=== PATIENT | male | born 1975 | race Caucasian/White ===

== ENCOUNTER 2017-06-12 06:41 | Emergency (ER) | payer OTHER ==
[~2017-06-12] VITALS: Ht 172.7 cm; Wt 102.1 kg
[~2017-06-12 06:41] MED LIST: NAPROSYN500 MG PO; NORCO 5-325 TA1 EACH PO
[2017-06-12] MEDS ORDERED: OMEPRAZOLE40 MG PO (06:48)
[2017-06-12 08:00] VITALS: BP 128/85
[2017-06-12] MEDS ORDERED: NORCO 5-325 TA1 EACH PO (08:11)
[2017-06-12] MEDS ORDERED: CYCLOBENZAPRINE5 MG PO (08:11)
[2017-06-12] MEDS ORDERED: NAPROSYN500 MG PO (08:11)
== END 2017-06-12 08:12 | disposition home or self-care (01) ==
LOC: M.ERS 06:41
DX: S93.692A Other sprain of left foot, initial encounter (principal); X58.XXXA Exposure to other specified factors, initial encounter; Y93.89 Activity, other specified; Y92.89 Other specified places as the place of occurrence of the external cause; Y99.8 Other external cause status

== ENCOUNTER 2017-10-26 08:25 | Emergency (ER) | payer OTHER ==
[~2017-10-26] VITALS: Ht 170.2 cm; Wt 87.1 kg
[~2017-10-26 08:25] MED LIST changes: +CYCLOBENZAPRINE5 MG PO; +OMEPRAZOLE40 MG PO
[2017-10-26] MEDS ORDERED: NORCO 5-325 TA1 EACH PO (10:03)
[2017-10-26 10:08] VITALS: BP 140/80
== END 2017-10-26 10:09 | disposition home or self-care (01) ==
LOC: M.ERS 08:25
DX: S20.212A Contusion of left front wall of thorax, initial encounter (principal); Z98.890 Other specified postprocedural states; W01.0XXA Fall on same level from slipping, tripping and stumbling without subsequent striking against object, initial encounter; Y93.89 Activity, other specified; Y92.89 Other specified places as the place of occurrence of the external cause; Y99.8 Other external cause status

== ENCOUNTER 2018-10-08 10:18 | Emergency (ER) | payer OTHER ==
[~2018-10-08] VITALS: Ht 177.8 cm; Wt 83.9 kg
[2018-10-08] MEDS ORDERED: PRILOSEC OTC20 MG PO (10:36)
[2018-10-08 11:24] LABS: ABSOLUTE EOSINOPHILS 0.1 thou/uL (0.0-0.7); ABSOLUTE LYMPHOCYTES 1.1 thou/uL (0.8-5.3); ABSOLUTE MONOCYTES 0.3 thou/uL (0.0-1.2); ABSOLUTE NEUTROPHILS 6.8 thou/uL (1.6-8.1); BASOPHILS 0.4 %; EOSINOPHILS 1.1 %; HEMATOCRIT 39.9 % (42.0-52.0); HEMOGLOBIN 13.8 gm/dL (14.0-18.0); LYMPHOCYTES 12.9 %; MCH 30.7 pg (26.0-34.0); MCHC 34.5 g/dL (28.0-37.0); MONOCYTES 4.2 %; MPV 7.9 fl. (7.2-11.1); NUCLEATED RBCS 0 /100WBC; PLATELET COUNT* 276 thou/uL (150-400); POLYS 81.4 %; RBC 4.48 mil/uL (4.50-6.00); RDW-CV 12.7 % (10.5-14.5); WBC 8.3 thou/uL (4.0-11.0)
[2018-10-08] MEDS ORDERED: PROMETH-CODEIN 65 ML PO (11:32)
[2018-10-08 11:44] LABS: ANION GAP 10 mmol/L (7-16); BUN 14 mg/dL (7-18); CALCIUM 9.6 mg/dL (8.5-10.1); CHLORIDE 96 mmol/L (98-107); CO2 28 mmol/L (21-32); CREATININE 0.9 mg/dL (0.6-1.3); GLUCOSE 99 mg/dL (70-99); POTASSIUM 3.8 mmol/L (3.5-5.1); SODIUM 134 mmol/L (136-145)
[2018-10-08 11:45] LABS: ALBUMIN 3.7 g/dL (3.4-5.0); ALKALINE PHOSPHATASE 71 U/L (46-116); NT-PRO BRAIN NAT PEPTIDE 23 pg/mL (<300); SGOT 21 U/L (15-37); SGPT 24 U/L (30-65); TOTAL BILIRUBIN 0.6 mg/dL (<0.1-1.0); TOTAL PROTEIN 8.4 g/dL (6.4-8.2); TROPONIN-I LEVEL <0.06 ng/mL (<0.06)
[2018-10-08] MEDS ORDERED: ATIVAN0.5 MG PO (12:15)
[2018-10-08 12:26] VITALS: BP 133/89
--- NOTE | 2018-10-09 08:41 | EKG ---
[place] [address] ELECTROCARDIOGRAM REPORT Name: ZAYNAB CROSS Room: [facility]#: [id number] Admission: 10/08/18 Attend Phys: Discharge: 10/08/18 Date of : 75 Report #: [id number] THIS REPORT FOR: //name// [facility] ED Test Date: 2018-10-08 Test Time: 10:53:29 Pat Name: ZAYNAB CROSS Department: Room: Gender: M [employer]el Builder: : 1975 Requested By: Nilda Sellers Order Number: [id number] MD: Matt Cuello Measurements Intervals Bryant Rate: 90 P: 9 WV: 147 QRS: 10 QRSD: 82 T: 15 QT: 327 QTc: 400 Interpretive Statements Sinus rhythm ST elev, probable normal early repol pattern No previous ECG available for comparison Electronically Signed On 10-09-2018 8:41:17 CDT by Matt Cuello [email or web address] <ELECTRONICALLY SIGNED> By: Matt Cuello MD, [facility] 10/09/18 0841 [id number] [id number] Matt Cuello MD, FACC /EPI
== END 2018-10-08 12:26 | disposition home or self-care (01) ==
LOC: M.ERS 10:18
PROVIDERS: Nurse Practitioner Family
DX: F41.9 Anxiety disorder, unspecified (principal); R06.00 Dyspnea, unspecified; Z87.01 Personal history of pneumonia (recurrent); Z87.891 Personal history of nicotine dependence; Z98.890 Other specified postprocedural states

== ENCOUNTER 2020-12-01 17:54 | Emergency (ER) | payer OTHER ==
[~2020-12-01] VITALS: Ht 170.2 cm; Wt 79.4 kg
[~2020-12-01 17:54] MED LIST changes: +ATIVAN0.5 MG PO; +PRILOSEC OTC20 MG PO; +PROMETH-CODEIN 65 ML PO
[2020-12-01 19:28] LABS: URINE BILIRUBIN NEGATIVE (Negative); URINE BLOOD NEGATIVE (Negative); URINE CLARITY CLEAR; URINE COLOR YELLOW; URINE GLUCOSE-RANDOM NEGATIVE (Negative); URINE KETONES NEGATIVE (Negative); URINE LEUKOCYTES-REFLEX NEGATIVE (Negative); URINE NITRITE-REFLEX NEGATIVE (Negative); URINE PROTEIN NEGATIVE (Negative); URINE SPECIFIC GRAVITY >= 1.030 (1.005-1.030); URINE UROBILINOGEN 0.2 E.U./dl (0.2-1.0)
[2020-12-01] MEDS ORDERED: FLEXERIL PO (19:35)
[2020-12-01 19:41] VITALS: BP 132/78
== END 2020-12-01 19:41 | disposition home or self-care (01) ==
LOC: M.ERS 17:54
PROVIDERS: Nurse Practitioner Family
DX: M54.50 Low back pain, unspecified (principal); Z90.89 Acquired absence of other organs; Z87.891 Personal history of nicotine dependence; V87.7XXA Person injured in collision between other specified motor vehicles (traffic), initial encounter; Y93.89 Activity, other specified; Y92.89 Other specified places as the place of occurrence of the external cause; Y99.8 Other external cause status